=== PATIENT | male | born 1945 | race African-American/Black ===

== ENCOUNTER 2018-01-21 12:31 | Observation (INO) ==
--- NOTE | 2018-01-21 14:09 | ED ---
HPI General Chief Complaint: Dizziness Stated Complaint: dizzyness Time Seen by Provider: 01/21/18 14:06 Source: patient Mode of arrival: ambulatory Limitations: no limitations History of Present Illness HPI Narrative: 72-year-old male patient with history of hypertension presents to the ER today because he states he woke up this morning feeling dizzy. He states that he denies any chest pains, trouble breathing, or any other issues. He states that that said that is all he has noticed. Related Data Home Medications Medication Instructions Recorded Confirmed losartan-hydrochlorothiazide 1 tab PO DAILY 01/21/18 01/21/18 memantine [Namenda] 10 mg PO DAILY 01/21/18 01/21/18 Allergies Allergy/AdvReac Type Severity Reaction Status Date / Time No Known Allergies Allergy Verified 01/21/18 12:45 Review of Systems ROS: all other systems reviewed are negative PMFSH History History Provided By: Patient Medical History Medical History Dementia (Acute) Diabetes (Acute) Hypertension (Acute) Prostate cancer (Acute) Social History Social History Substance History: No History of Abuse Smoking Status: Never smoker How Often Do You Have a Drink Containing Alcohol: Monthly or less Recent Travel in [facility] within the Last 8 Weeks: No Recent Out of Country Travel within the Last 8 Weeks: No Exam Narrative Exam Narrative: GENERAL: Well-developed elderly -[place] male patient currently and mild distress. Awake and oriented x3. SKIN: Focused skin assessment warm/dry. HEAD: Atraumatic. Normocephalic. EYES: Pupils equal and round. No scleral icterus. No injection or drainage. ENT: No nasal bleeding or discharge. Mucous membranes pink and moist. NECK: Trachea midline. No JVD. CARDIOVASCULAR: Regular rate and rhythm. No murmur appreciated. RESPIRATORY: No accessory muscle use. Clear to auscultation. Breath sounds equal bilaterally. GASTROINTESTINAL: Abdomen soft, non-tender, nondistended. Hepatic and splenic margins not palpable. MUSCULOSKELETAL: No obvious deformities. No clubbing. No cyanosis. No edema. NEUROLOGICAL: Awake and alert. No obvious cranial nerve deficits. Motor grossly within normal limits. Normal speech. No pronator drift. PSYCHIATRIC: Appropriate mood and affect; insight and judgment normal. Course Initial Documented Vital Signs Temperature 98.2 F 01/21/18 12:41 Pulse Rate 101 H 01/21/18 12:41 Respiratory Rate 18 01/21/18 12:41 Blood Pressure 126/73 01/21/18 12:41 Pulse Oximetry 99 01/21/18 12:41 Last Documented Vital Signs Temperature 98.2 F 01/21/18 12:41 Pulse Rate 91 H 01/21/18 16:51 Respiratory Rate 14 01/21/18 16:51 Blood Pressure 113/78 01/21/18 16:51 Pulse Oximetry 98 01/21/18 16:51 Medical Decision Making MDM Narrative Medical decision making narrative: Patient has no focal neurological deficits. Lab shows significant glucose elevations of 454. IV fluids and insulin was given in the ER. At this point, my plan would be to admit the patient for further treatment of new onset diabetes. Case is discussed with Dr. Bee for admission. Medical Screen Exam Complete: Yes Emergency Medical Condition: Yes Differential Diagnosis Differential Diagnosis: Orthostasis versus dehydration versus electrolyte abnormalities versus CVA Lab Data Lab results reviewed: Yes I reviewed the patient's lab results. Result diagrams: 01/21/18 14:20 01/21/18 14:20 Lab Results 01/21/18 01/21/18 01/21/18 Range/Units 14:13 14:20 14:20 WBC 5.5 (4.0-11.0) th/mm3 RBC 4.86 (4.50-5.90) mil/mm3 Hgb 14.4 (13.0-17.0) gm/dL Hct 41.6 (39.0-51.0) % MCV 85.7 (80.0-100.0) fL MCH 29.6 (27.0-34.0) pg MCHC 34.5 (32.0-36.0) % RDW 12.6 (11.6-17.2) % Plt Count 167 (150-450) th/mm3 MPV 8.9 (7.0-11.0) fL Neut % (Auto) 51.8 (16.0-70.0) % Lymph % (Auto) 39.5 (9.0-44.0) % [place] % (Auto) 7.4 (0.0-8.0) % Eos % (Auto) 0.7 (0.0-4.0) % Baso % (Auto) 0.6 (0.0-2.0) % Neut # (Auto) 2.9 (1.8-7.7) th/mm3 Lymph # (Auto) 2.2 (1.0-4.8) th/mm3 [place] # (Auto) 0.4 (0.0-0.9) th/mm3 Eos # (Auto) 0.0 (0.0-0.4) th/mm3 Baso # (Auto) 0.0 (0.0-0.2) th/mm3 WBC Differential . Differential Comment Auto diff final Sodium 130 L (136-145) meq/L Potassium 4.0 (3.5-5.1) meq/L Chloride 90 L (98-107) meq/L Carbon Dioxide 26.8 (21.0-32.0) meq/L Anion Gap 13 (5-15) meq/L BUN 23 H (7-18) mg/dL Creatinine 1.60 H (0.60-1.30) mg/dL Estimated GFR 51 L (>89) mL/min POC Glucose 522 H* (68-110) mg/dl Random Glucose 458 H* (74-106) mg/dL Calcium 9.7 (8.5-10.1) mg/dL Total Bilirubin 1.0 (0.2-1.0) mg/dL AST 27 (15-37) U/L ALT 52 (12-78) U/L Alkaline Phosphatase 280 H (45-117) U/L Troponin I Less than 0.02 L (0.02-0.05) ng/mL Total Protein 9.2 H (6.4-8.2) g/dL Albumin 4.3 (3.4-5.0) g/dL Urine Color (Yellw/Straw) Urine Clarity (Clear) Urine pH (5.0-8.5) Ur Specific [place] (1.002-1.035) Urine Protein (Neg-Trace) mg/dL Urine Glucose (UA) (Negative) mg/dL Urine Ketones (Negative) mg/dL Urine Occult Blood (Negative) Urine Nitrate (Negative) Urine Bilirubin (Negative) Urine Urobilinogen (Less than 2) mg/dL Ur Leukocyte Esterase (Negative) Urine RBC (0-3) /hpf Urine WBC (0-5) /hpf Micro UA Comment Ur Microscopic Review Urine Culture Comments 01/21/18 Range/Units 15:22 WBC (4.0-11.0) th/mm3 RBC (4.50-5.90) mil/mm3 Hgb (13.0-17.0) gm/dL Hct (39.0-51.0) % MCV (80.0-100.0) fL MCH (27.0-34.0) pg MCHC (32.0-36.0) % RDW (11.6-17.2) % Plt Count (150-450) th/mm3 MPV (7.0-11.0) fL Neut % (Auto) (16.0-70.0) % Lymph % (Auto) (9.0-44.0) % [place] % (Auto) (0.0-8.0) % Eos % (Auto) (0.0-4.0) % Baso % (Auto) (0.0-2.0) % Neut # (Auto) (1.8-7.7) th/mm3 Lymph # (Auto) (1.0-4.8) th/mm3 [place] # (Auto) (0.0-0.9) th/mm3 Eos # (Auto) (0.0-0.4) th/mm3 Baso # (Auto) (0.0-0.2) th/mm3 WBC Differential Differential Comment Sodium (136-145) meq/L Potassium (3.5-5.1) meq/L Chloride (98-107) meq/L Carbon Dioxide (21.0-32.0) meq/L Anion Gap (5-15) meq/L BUN (7-18) mg/dL Creatinine (0.60-1.30) mg/dL Estimated GFR (>89) mL/min POC Glucose (68-110) mg/dl Random Glucose (74-106) mg/dL Calcium (8.5-10.1) mg/dL Total Bilirubin (0.2-1.0) mg/dL AST (15-37) U/L ALT (12-78) U/L Alkaline Phosphatase (45-117) U/L Troponin I (0.02-0.05) ng/mL Total Protein (6.4-8.2) g/dL Albumin (3.4-5.0) g/dL Urine Color Yellow (Yellw/Straw) Urine Clarity Clear (Clear) Urine pH 5.0 (5.0-8.5) Ur Specific [place] 1.022 (1.002-1.035) Urine Protein Negative (Neg-Trace) mg/dL Urine Glucose (UA) 500 or greater (Negative) mg/dL Urine Ketones Trace H (Negative) mg/dL Urine Occult Blood Negative (Negative) Urine Nitrate Negative (Negative) Urine Bilirubin Negative (Negative) Urine Urobilinogen Less than 2 (Less than 2) mg/dL Ur Leukocyte Esterase Negative (Negative) Urine RBC Less than 1 (0-3) /hpf Urine WBC Less than 1 (0-5) /hpf Micro UA Comment Culture not ind Ur Microscopic Review Not Reportable Urine Culture Comments Culture not ind Imaging Data Attestation: I personally reviewed and interpreted this imaging study as follows : Radiologist's impression: Chest X-Ray 01/21/18 14:06 CONCLUSION: 1. No acute cardiopulmonary disease. Head CT 01/21/18 14:06 CONCLUSION: 1. Senescent changes with moderate periventricular ischemic white matter demyelination. 2. No acute intracranial abnormality. . Discharge Plan Discharge Disposition Patient Disposition: 30 Still Patient Discharge Condition Condition: Stable Discharge Details Anticipated Discharge Date: 01/21/18 Diagnosis: Hyperglycemia, Diabetes mellitus, new onset Physicians Team ED Provider: Madhuri oCnway Primary Care Provider: Teresita Romero Rxs /Orders / Referrals /Forms Prescriptions: No Action losartan-hydrochlorothiazide 50-12.5 mg Tablet 1 tab PO DAILY RF: 0 memantine [Namenda] 10 mg Tablet 10 mg PO DAILY RF: 0 Discharge Interventions Interventions: Vital Signs Last Done: 01/21/18 16:51 Status ED Status: Admitted Patient
[2018-01-21 14:36] LABS: Baso % (Auto) 0.6 % (0.0-2.0); Eos % (Auto) 0.7 % (0.0-4.0); Hematocrit 41.6 % (39.0-51.0); Hemoglobin 14.4 gm/dL (13.0-17.0); Lymph # (Auto) 2.2 th/mm3 (1.0-4.8); Lymph % (Auto) 39.5 % (9.0-44.0); Mean Corpuscular HGB Conc 34.5 % (32.0-36.0); Mean Corpuscular Hemoglobin 29.6 pg (27.0-34.0); Mean Corpuscular Volume 85.7 fL (80.0-100.0); Mean Platelet Volume 8.9 fL (7.0-11.0); Mono # (Auto) 0.4 th/mm3 (0.0-0.9); Mono % (Auto) 7.4 % (0.0-8.0); Neut # (Auto) 2.9 th/mm3 (1.8-7.7); Neut % (Auto) 51.8 % (16.0-70.0); Platelet Count 167 th/mm3 (150-450); Red Blood Count 4.86 mil/mm3 (4.50-5.90); Red Cell Distribution Width 12.6 % (11.6-17.2); White Blood Count 5.5 th/mm3 (4.0-11.0)
--- NOTE | 2018-01-21 14:43 | XR ---
EXAM DATE: 01/21/2018 2:36 PM EST AGE/SEX: 72 years / Male INDICATIONS: Chest pain and dizziness. CLINICAL DATA: This is the patient's initial encounter. Patient reports that signs and symptoms have been present for 1 day and indicates a pain score of 2/10. MEDICAL/SURGICAL HISTORY: None. None. [place] [facility] [place]. . FINDINGS: A single AP view of the chest demonstrates the lungs to be symmetrically aerated without evidence of mass, infiltrate or effusion. The cardiomediastinal contours are unremarkable. Osseous structures a re intact. CONCLUSION: 1. No acute cardiopulmonary disease. Electronically signed by: Robert Perez MD 01/21/2018 2:42 PM EST
[2018-01-21] MEDS ORDERED: Sodium Chlor 0.9% Inj 500 ML IV.SIG SCH (15:00)
[2018-01-21 15:18] LABS: Alanine Aminotransferase 52 U/L (12-78); Albumin 4.3 g/dL (3.4-5.0); Alkaline Phosphatase 280 U/L (45-117); Anion Gap 13 meq/L (5-15); Aspartate Aminotransferase 27 U/L (15-37); Blood Urea Nitrogen 23 mg/dL (7-18); Calcium 9.7 mg/dL (8.5-10.1); Carbon Dioxide 26.8 meq/L (21.0-32.0); Chloride 90 meq/L (98-107); Glomerular Filtration Rate 51 mL/min (>89); Sodium 130 meq/L (136-145); Total Protein 9.2 g/dL (6.4-8.2)
[2018-01-21 15:23] LABS: Glucose,Random 458 mg/dL (74-106)
[2018-01-21 15:49] LABS: Bilirubin,Urine Negative (Negative); Clarity,Urine Clear (Clear); Color,Urine Yellow (Yellw/Straw); Glucose,Urine (UA) 500 or Greater mg/dL (Negative); Leukocyte Esterase,Urine Negative (Negative); Nitrite,Urine Negative (Negative); Specific Gravity,Urine 1.022 (1.002-1.035)
--- NOTE | 2018-01-21 15:51 | CT ---
EXAM DATE: 01/21/2018 3:47 PM EST AGE/SEX: 72 years / Male INDICATIONS: Dizzy disoriented CLINICAL DATA: This is the patient's initial encounter. Patient reports that signs and symptoms have been present for 1 day and indicates a pain score of 0/10. MEDICAL/SURGICAL HISTORY: Diabetes. Hypertension. Carcinoma, prostatic. Dementia None. RADIATION DOSE: 56.35 CTDI (mGy) COMPARISON: No prior exams available for comparison. TECHNIQUE: CT of the head without contrast. Using automated exposure control and adjustment of the mA and/or kV according to patient size, radiation dose was kept as low as reasonably achievable to ob tain optimal diagnostic quality images. DICOM format image data is available electronically for revi ew and comparison. FINDINGS: Cerebrum: Moderate diffuse cerebral atrophy. The ventricles are normal for degree of atrophy. Modera te periventricular white matter hypodensities. No evidence of midline shift, mass lesion, hemorrhage or acute infarction. No extraaxial fluid collections are seen. Posterior Fossa: The cerebellum and brainstem are intact. The 4th ventricle is midline. The cerebe llopontine angle is unremarkable. Extracranial: The visualized portion of the orbits is intact. Skull: The calvaria is intact. No evidence of skull fracture. CONCLUSION: 1. Senescent changes with moderate periventricular ischemic white matter demyelination. 2. No acute intracranial abnormality. . Electronically signed by: Robert Perez MD 01/21/2018 3:50 PM EST
[2018-01-21] MEDS ORDERED: Acetaminophen 325 MG Tablet PO PRN (16:59)
[2018-01-21] MEDS ORDERED: Dextrose 50% in Water 50 ML Vial IV.PUSH PRN ×2 (16:59→17:02)
--- NOTE | 2018-01-21 18:06 | P.HP ---
History of Present Illness Primary Care Physician: Teresita Romero History of Present Illness: 72-year-old male with a history of hypertension and early dementia was taken to his primary care provider earlier today after his daughter noticed some changes in his behavior and patient complained of feeling unusually tired. When they checked a blood sugar at the office it was above 400 and he was directed to go to our [facility] emergency room for further care. When he arrived his sugar was beyond 500 and he received 4 units of insulin which brought it down to approximately 450. His daughter reports that over the last week he has been craving starchy foods and eating them excessively despite being told not to he pursues them with urgency. He has also been drinking excessive amounts of water and urinating frequently. Currently he is resting on the ER stretcher in his room, has no complaints of pain. He denies any recent fevers and ER workup revealed no urinary tract infection and a normal chest x-ray. He denies any numbness in his feet or hands. He denies any sensation of itching burning in his feet. He denies any recent visual changes. He denies any nausea vomiting or diarrhea. He denies any chest pain, shortness of breath, irregular heartbeat , palpitations, cough, fever. Review of Systems All other systems reviewed negative except as stated in HPI PMFSH - History History Provided By: Patient - Medical History Medical History: Medical History (Last Reviewed 01/21/18 @ 14:08 by Madhuri Conway MD) Dementia Diabetes Hypertension Prostate cancer - Surgical History Surgical History: Surgical History (Last Reviewed 01/21/18 @ 14:08 by Madhuri Conway MD) Hx of tonsillectomy - Family History Family History: Family History (Last Updated 01/21/18 @ 18:01 by Emerson Bee MD) Other Hypertension Stroke Type 2 diabetes mellitus - Tobacco History Smoking Status: Never smoker - Alcohol History How Often Do You Have a Drink Containing Alcohol: Monthly or less - Substance Use History Substance History: No History of Abuse - Travel History Recent Travel in the [place] Within the Last 8 Weeks: No Recent Travel Out of the Country Within the Last 8 Weeks: No - Immunization History Tetanus Immunization: >5 Years Medications and Allergies Active Medications: Active Medications Acetaminophen (Tylenol) 650 mg PO Q4H PRN PRN Reason: Temp > 100.4 Dextrose (D50w Vial) 50 ml IV.PUSH UNSCH PRN PRN Reason: PER HYPOGLYCEMIA PROTOCOL Enoxaparin Sodium (Lovenox Inj) 40 mg SQ Q24H GILMAR Glucagon (Glucagon Inj) 1 mg OTHER PRN PRN PRN Reason: for Hypoglycemia Protocol Insulin Aspart (Novolog Insulin Correctional Sugar Inj) 0 unit SQ ACHS GILMAR; Protocol Insulin Aspart (Novolog Inj) 10 units SQ ONCE ONE Stop: 01/21/18 17:57 Metformin HCl (Glucophage) 500 mg PO BIDPC GILMAR Ondansetron HCl (Zofran Inj) 4 mg IV.PUSH Q6H PRN PRN Reason: NAUSEA OR VOMITING Sennosides (Senokot) 17.2 mg PO Q12H PRN PRN Reason: Moderate Constipation Sodium Chloride (Ns Flush) 2 ml IV.FLUSH PRN PRN PRN Reason: FLUSH AFTER USING IV ACCESS Allergies Allergy/AdvReac Type Severity Reaction Status Date / Time No Known Allergies Allergy Verified 01/21/18 12:45 Home Medications Medication Instructions Recorded Confirmed Type losartan-hydrochlorothiazide 1 tab PO DAILY 01/21/18 01/21/18 History memantine [Namenda] 10 mg PO DAILY 01/21/18 01/21/18 History Exam Vital signs: Vital Signs 01/21/18 12:41 01/21/18 14:09 01/21/18 14:10 Temperature 98.2 F Pulse Rate 101 H 105 H 105 H Respiratory Rate 18 15 Blood Pressure 126/73 129/74 Pulse Oximetry 99 95 01/21/18 16:51 Temperature Pulse Rate 91 H Respiratory Rate 14 Blood Pressure 113/78 Pulse Oximetry 98 Intake & Output 01/20/18 01/21/18 01/21/18 18:59 06:59 18:59 Intake Total 500 / 500 Balance 500 / 500 Weight 81.647 kg Intake: IV 500 / 500 NS Inj 500 ML @ 1000 mls/hr IV. 500 / 500 SIG BOLUS [facility] Rx#:[id number] Narrative: GENERAL: AAOx3, no acute distress, adequate nutrition SKIN: Warm and dry, no rashes. HEAD: Atraumatic. Normocephalic. EYES: Pupils equal, round, reactive to light. No scleral icterus. No injection or drainage. ENT: No nasal bleeding or discharge. Moist mucous membranes. Nonerythematous oropharynx. NECK: Trachea midline. No JVD. Thyroid size within normal limits. CARDIOVASCULAR: Regular rate and rhythm. No murmur, no gallops, no rubs. RESPIRATORY: Clear and equal to auscultation bilaterally. No crackles, no wheezes. No accessory muscle use. GASTROINTESTINAL: Abdomen soft, non-tender, nondistended, normal active bowel sounds. Hepatic and splenic margins not palpable. MUSCULOSKELETAL: Extremities without clubbing or cyanosis. No obvious deformities. No edema. NEUROLOGICAL: Awake and alert. No obvious cranial nerve deficits. Motor grossly within normal limits. No focal deficits. Five out of 5 muscle strength in the arms and legs. Normal speech. PSYCHIATRIC: Appropriate mood and affect; insight and judgment normal. Results - Labs CBC & Chem 7: 01/21/18 14:20 01/21/18 14:20 Labs: Laboratory Results - last 24 hr 01/21/18 01/21/18 01/21/18 14:13 14:20 14:20 WBC 5.5 RBC 4.86 Hgb 14.4 Hct 41.6 MCV 85.7 MCH 29.6 MCHC 34.5 RDW 12.6 Plt Count 167 MPV 8.9 Neut % (Auto) 51.8 Lymph % (Auto) 39.5 [place] % (Auto) 7.4 Eos % (Auto) 0.7 Baso % (Auto) 0.6 Neut # (Auto) 2.9 Lymph # (Auto) 2.2 [place] # (Auto) 0.4 Eos # (Auto) 0.0 Baso # (Auto) 0.0 WBC Differential . Differential Comment Auto diff final Sodium 130 L Potassium 4.0 Chloride 90 L Carbon Dioxide 26.8 Anion Gap 13 BUN 23 H Creatinine 1.60 H Estimated GFR 51 L POC Glucose 522 H* Random Glucose 458 H* Calcium 9.7 Total Bilirubin 1.0 AST 27 ALT 52 Alkaline Phosphatase 280 H Troponin I Less than 0.02 L Total Protein 9.2 H Albumin 4.3 Urine Color Urine Clarity Urine pH Ur Specific [place] Urine Protein Urine Glucose (UA) Urine Ketones Urine Occult Blood Urine Nitrate Urine Bilirubin Urine Urobilinogen Ur Leukocyte Esterase Urine RBC Urine WBC Micro UA Comment Ur Microscopic Review Urine Culture Comments 01/21/18 01/21/18 15:22 16:50 WBC RBC Hgb Hct MCV MCH MCHC RDW Plt Count MPV Neut % (Auto) Lymph % (Auto) [place] % (Auto) Eos % (Auto) Baso % (Auto) Neut # (Auto) Lymph # (Auto) [place] # (Auto) Eos # (Auto) Baso # (Auto) WBC Differential Differential Comment Sodium Potassium Chloride Carbon Dioxide Anion Gap BUN Creatinine Estimated GFR POC Glucose 474 H* Random Glucose Calcium Total Bilirubin AST ALT Alkaline Phosphatase Troponin I Total Protein Albumin Urine Color Yellow Urine Clarity Clear Urine pH 5.0 Ur Specific [place] 1.022 Urine Protein Negative Urine Glucose (UA) 500 or greater Urine Ketones Trace H Urine Occult Blood Negative Urine Nitrate Negative Urine Bilirubin Negative Urine Urobilinogen Less than 2 Ur Leukocyte Esterase Negative Urine RBC Less than 1 Urine WBC Less than 1 Micro UA Comment Culture not ind Ur Microscopic Review Not Reportable Urine Culture Comments Culture not ind - Imaging Impressions Chest X-Ray 01/21/18 14:06 CONCLUSION: 1. No acute cardiopulmonary disease. Head CT 01/21/18 14:06 CONCLUSION: 1. Senescent changes with moderate periventricular ischemic white matter demyelination. 2. No acute intracranial abnormality. . Caprini VTE Risk Assessment Caprini VTE Risk Assessment: Moderate/High Risk (score >= 2) Caprini Risk Assessment Model: Point Value = 1 Point Value = 2 Point Value = 3 Point Value = 5 Age 41-60 Minor surgery BMI > 25 kg/m2 Swollen legs Varicose veins or History of unexplained or recurrent spontaneous Oral contraceptives or hormone replacement Sepsis (< 1 month) Serious lung disease, including pneumonia (< 1 month) Abnormal pulmonary function Acute myocardial infarction Congestive heart failure (< 1 month) History of inflammatory bowel disease Medical patient at bed rest Age 61-74 Arthroscopic surgery Major open surgery (> 45 min) Laparoscopic surgery (> 45 min) Malignancy Confined to bed (> 72 hours) Immobilizing plaster cast Central venous access Age >= 75 History of VTE Family history of VTE Factor V Leiden Prothrombin [id number] Lupus anticoagulant Anticardiolipin antibodies Elevated serum homocysteine Heparin-induced thrombocytopenia Other congenital or acquired thrombophilia Stroke (< 1 month) Elective arthroplasty Hip, pelvis, or leg fracture Acute spinal cord injury (< 1 month) Prophylaxis Regimen: Total Risk Factor Score Risk Level Prophylaxis Regimen 0-1 Low Early ambulation 2 Moderate Order ONE of the following: *Sequential Compression Device (SCD) *Heparin 5000 units SQ BID 3-4 Higher Order ONE of the following medications: *Heparin 5000 units SQ TID *Enoxaparin/Lovenox 40 mg SQ daily (WT < 150 kg, CrCl > 30 mL/min) *Enoxaparin/Lovenox 30 mg SQ daily (WT < 150 kg, CrCl > 10-29 mL/min) *Enoxaparin/Lovenox 30 mg SQ BID (WT < 150 kg, CrCl > 30 mL/min) AND/OR *Sequential Compression Device (SCD) 5 or more Highest Order ONE of the following medications: *Heparin 5000 units SQ TID (Preferred with Epidurals) *Enoxaparin/Lovenox 40 mg SQ daily (WT < 150 kg, CrCl > 30 mL/min) *Enoxaparin/Lovenox 30 mg SQ daily (WT < 150 kg, CrCl > 10-29 mL/min) *Enoxaparin/Lovenox 30 mg SQ BID (WT < 150 kg, CrCl > 30 mL/min) AND *Sequential Compression Device (SCD) Assessment and Plan - Plan Newly diagnosed diabetic Likely type 2 diabetes based on family history Patient presented following polydipsia, polyuria, sugar craving times 1 week Medium scale insulin coverage with in between dosing, 10 more units given in addition to 4 previous in the ER Follow with regular Accu-Cheks before meals at bedtime No sign of infection as causal factor Hypoglycemic protocol in place Begin on oral metformin Diabetic teaching ordered Patient has dementia, if possible sent home on oral medications Follow-up a.m. labs Early dementia Patient denies he has dementia, family become frustrated with his denial Follow for sundowning or other behavioral changes Speech therapy for cognitive evaluation h/o prostate cancer Check PSA with a.m. labs h/o hypertension Continue home meds DVT Prophylaxis Lovenox
[2018-01-21] MEDS: Enoxaparin Inj 40 MG/0.4 ML Syringe SQ SCH (19:28)
[2018-01-21] MEDS: Insulin NovoLOG Aspart Correctional Sugar Inj SQ SCH (21:34)
[2018-01-22 05:58] LABS: Hemoglobin 13.3 gm/dL (13.0-17.0); Mean Corpuscular HGB Conc 34.1 % (32.0-36.0); Mean Corpuscular Hemoglobin 29.3 pg (27.0-34.0); Mean Corpuscular Volume 85.8 fL (80.0-100.0); Mean Platelet Volume 9.4 fL (7.0-11.0); Platelet Count 161 th/mm3 (150-450); Red Blood Count 4.55 mil/mm3 (4.50-5.90); Red Cell Distribution Width 12.6 % (11.6-17.2); White Blood Count 5.5 th/mm3 (4.0-11.0)
[2018-01-22 06:28] LABS: Calcium 9.7 mg/dL (8.5-10.1); Carbon Dioxide 28.2 meq/L (21.0-32.0); Potassium 3.6 meq/L (3.5-5.1)
[2018-01-22 06:37] LABS: Thyroid Stimulating Hormone 0.449 uIU/mL (0.358-3.740)
[2018-01-22] MEDS ORDERED: Non-Formulary Drug (Losartan-Hydrochlorothiazide [Losartan-Hydrochlorothiazide] 1 TAB) PO SCH (09:00)
[2018-01-22] MEDS: Glimepiride 1 MG Tablet PO SCH ×3 (10:09→21:07)
[2018-01-22] MEDS: Insulin NovoLOG Aspart Correctional Sugar Inj SQ SCH ×4 (10:10→21:07)
--- NOTE | 2018-01-22 10:25 | ECG ---
Date Performed: 01/21/2018 Time Performed: 14:21:22 PTAGE: 72 years EKG: SINUS TACHYCARDIA POSSIBLE LEFT ATRIAL ENLARGEMENT RIGHT BUNDLE BRANCH BLOCK LEFT POSTERIOR FASCICULAR BLOCK ABNORMAL ECG Since the PREVIOUS TRACING , no significant change noted PREVIOUS TRACIN05/27/2015 10.36 DOCTOR: Chas Rodriguez Interpretating Date/Time 01/22/2018 10:23:46
--- NOTE | 2018-01-22 15:25 | P.PNIM ---
Subjective Interval history: Follow up AMS new onset DM pt offers no new concerns/complaints reports feeling much better today Physical Exam Vital signs: Last Vital Signs Temp 98.6 F 01/22/18 12:42 Pulse 103 H 01/22/18 12:42 Resp 16 01/22/18 12:42 BP 120/67 01/22/18 12:42 Pulse Ox 95 01/22/18 12:42 Narrative: GENERAL: This is a well-nourished, well-developed patient, in no apparent distress. CARDIOVASCULAR: Regular rate and rhythm RESPIRATORY: Clear to auscultation. Breath sounds equal bilaterally. GASTROINTESTINAL: Abdomen soft, non-tender, nondistended. Normal active bowel sounds MUSCULOSKELETAL: Extremities without clubbing, cyanosis, or edema. NEURO: Alert & Oriented, confusion at times per nursing. Moves all ext x4 Results Labs CBC & Chem 7: 01/22/18 05:09 01/22/18 05:09 Assessment and Plan Assessment (1) Hyperglycemia: Code(s): R73.9 - Hyperglycemia, unspecified Status: Acute (2) Diabetes mellitus, new onset: Code(s): E11.9 - Type 2 diabetes mellitus without complications Status: Acute Plan Newly diagnosed diabetic Likely type 2 diabetes based on family history Patient presented following polydipsia, polyuria, sugar craving times 1 week HA1C pending Medium scale insulin coverage with in between dosing, 10 more units given in addition to 4 previous in the ER Follow with regular Accu-Cheks before meals at bedtime No sign of infection as causal factor Hypoglycemic protocol in place Begin on oral metformin add Glimepiride 1 mg PO BID, patient continues to require supplemental insulin with sliding scale increase glimepiride 2 mg BID Blood glucose remains in the 300's Diabetic teaching ordered Patient has dementia, if possible sent home on oral medications Early dementia Patient denies he has dementia, family become frustrated with his denial Follow for sundowning or other behavioral changes Speech therapy for cognitive evaluation, on the [facility] mental status exam h/o prostate cancer PSA pending h/o hypertension Continue home meds DVT Prophylaxis Lovenox Attending Attestation The exam, history, and the medical decision-making described in the above note were completed with the assistance of the mid-level provider. I reviewed and agree with the findings presented. I attest that I had a [id number] encounter with the patient on the same day, and personally performed and documented my assessment and findings in the medical record. Patient examined. Assessment and plan formulated with Nazia Love PA-C. I agree with the above. Progress Note: Quality VTE Deep Vein Thrombosis/Pulmonary Embolism Present on Admission: No
[2018-01-22 16:55] LABS: Hemoglobin A1c 14.2 % (4.3-6.0)
[2018-01-22] MEDS: Enoxaparin Inj 40 MG/0.4 ML Syringe SQ SCH (18:16)
[2018-01-23] MEDS: Insulin NovoLOG Aspart Correctional Sugar Inj SQ SCH ×4 (09:15→20:56)
[2018-01-23] MEDS: Glimepiride 1 MG Tablet PO SCH ×2 (09:16→16:58)
--- NOTE | 2018-01-23 15:31 | P.DCO ---
Diagnosis (1) Hyperglycemia: Status: Acute (2) Diabetes mellitus, new onset: Status: Acute Home Health Nursing Order: Medical education, Signs/symptoms of disease process, Diabetic education , Medication education-adverse effect and Nursing assessment with vital signs Booth Cashier Order: To evaluate: Living conditions/environment and Support services Order: To provide: Long range planning and Community services Case Management Consult Yes I have seen patient Rod Saez on 01/23/18. My clinical findings support the need for the requested home health care services because: Limited mobility due to disease progression I certify that my clinical findings support that this patient is homebound because: Impaired cognitive ability/safety
--- NOTE | 2018-01-23 16:02 | P.PNIM ---
Subjective Interval history: Pt has NO new complaints. Physical Exam Vital signs: Last Vital Signs Temp 97.7 F 01/23/18 08:00 Pulse 93 H 01/23/18 12:00 Resp 16 01/23/18 12:00 BP 123/77 01/23/18 12:00 Pulse Ox 97 01/23/18 12:00 Narrative: GENERAL: This is a well-nourished, well-developed patient, in no apparent distress. CARDIOVASCULAR: Regular rate and rhythm RESPIRATORY: Clear to auscultation. Breath sounds equal bilaterally. GASTROINTESTINAL: Abdomen soft, non-tender, nondistended. Normal active bowel sounds MUSCULOSKELETAL: Extremities without clubbing, cyanosis, or edema. NEURO: Alert & Oriented, confusion at times per nursing. Moves all ext x4 Results Labs CBC & Chem 7: 01/22/18 05:09 01/22/18 05:09 Assessment and Plan Assessment (1) Hyperglycemia: Code(s): R73.9 - Hyperglycemia, unspecified Status: Acute (2) Diabetes mellitus, new onset: Code(s): E11.9 - Type 2 diabetes mellitus without complications Status: Acute Plan Newly diagnosed diabetic Likely type 2 diabetes based on family history Patient presented following polydipsia, polyuria, sugar craving times 1 week HA1C (01/22) 14.2 - blood sugar values are improving. All readings under 300 today. - continue metformin 1,000mg BID - continue amaryl 2mg BID - Diabetic teaching ordered - Patient has dementia, if possible sent home on oral medications - recommend outpt referral to [employer] - anticipate d/c to home 01/24/18 with [facility] Early dementia Patient denies he has dementia, family become frustrated with his denial Follow for sundowning or other behavioral changes Speech therapy for cognitive evaluation, on the [facility] mental status exam h/o prostate cancer PSA 15.7 - f/u with Urology outpt hypertension - stable Continue home meds DVT Prophylaxis Lovenox Progress Note: Quality VTE Deep Vein Thrombosis/Pulmonary Embolism Present on Admission: No
[2018-01-23] MEDS: Enoxaparin Inj 40 MG/0.4 ML Syringe SQ SCH (18:34)
[2018-01-24 07:31] VITALS: RESP 16
[2018-01-24] MEDS: Glimepiride 1 MG Tablet PO SCH (08:31)
[2018-01-24] MEDS: Insulin NovoLOG Aspart Correctional Sugar Inj SQ SCH ×2 (08:32→13:02)
--- NOTE | 2018-01-24 10:30 | P.DS ---
DS: Providers Date of admission: 01/21/18 17:13 Primary care physician: Teresita Romero DS: Diagnosis Discharge Diagnosis (1) Hyperglycemia: Status: Acute (2) Diabetes mellitus, new onset: Status: Acute DS: Summary Plan Newly diagnosed diabetic Likely type 2 diabetes based on family history Patient presented following polydipsia, polyuria, sugar craving times 1 week HA1C (01/22) 14.2 - blood sugars are improving. All readings now under 350, and most readings below 300 - continue metformin 1,000mg BID - continue amaryl 2mg BID - Patient has dementia. Pt will need family assistance to manage his blood sugars. - Insulin might be difficult. Would like to try to manage with [facility] first. - Pt may need to increase amaryl outpt - Case d/w pt and daughter Kristine (by phone) on day of discharge - recommend outpt referral to [employer] - discharge to home today - see discharge orders - F/u with PCP, Dr. Teresita Romero, in 1 week. Early dementia Patient denies he has dementia, family become frustrated with his denial Follow for sundowning or other behavioral changes Speech therapy for cognitive evaluation, on the [facility] mental status exam h/o prostate cancer PSA 15.7 - f/u with Urology outpt hypertension - stable Continue home meds Time Spent with Patient Total time spent providing and/or coordinating discharge services: Quality: VTE Deep Vein Thrombosis/Pulmonary Embolism Present on Admission: No DS: Data Labs on day of discharge: Labs from last 24 hours 01/24/18 01/23/18 01/23/18 08:30 20:51 18:09 POC Glucose 233 H 320 H 254 H 01/23/18 12:53 POC Glucose 268 H Impressions Chest X-Ray 01/21/18 14:06 CONCLUSION: 1. No acute cardiopulmonary disease. Head CT 01/21/18 14:06 CONCLUSION: 1. Senescent changes with moderate periventricular ischemic white matter demyelination. 2. No acute intracranial abnormality. . Discharge Plan Discharge Disposition Patient Disposition: W/Home Health Service Discharge Condition Condition: Stable Discharge Order Discharge Orders: Discharge Order (Routine); Ordered 01/24/18 Ordered By: Nazia Love Discharge Details Anticipated Discharge Date: 01/24/18 Physicians Team ED Provider: Madhuri Conway Primary Care Provider: Teresita Romero Attending Provider: Gil Villalba Rxs /Orders / Referrals /Forms Prescriptions: New glimepiride 2 mg tablet 2 mg PO BID Qty: 60 RF: 0 metformin 1,000 mg tablet 1,000 mg PO BID Qty: 60 RF: 0 Continue losartan-hydrochlorothiazide 50-12.5 mg Tablet 1 tab PO DAILY RF: 0 memantine [Namenda] 10 mg Tablet 10 mg PO DAILY RF: 0 Referrals: Gregory Gould DO [UROLOGY] - See Instructions (Follow up with Urology in 1-2 weeks regarding elevated PSA) Teresita Romero, [employer]AT[employer] VETERINARIAN [Primary Care Provider] - See Instructions (follow up within 1 week) Discharge Instructions Patient Printed Instructions: Foot Care for People with Diabetes (GEN), Type 2 Diabetes in Adults (GEN), Managing Diabetes During Sick Days (GEN) Additional Instructions: IMPORTANT PHONE NUMBERS: [facility] [phone] or [phone] Status ED Status: Left Department
[2018-01-24 11:57] VITALS: BP 135/96; PULSE 88; TEMP 98.2; O2SAT 96
== END 2018-01-24 15:20 | disposition home health service (06) ==
LOC: NEDA 12:31 → NEPC 12:31 → NEPFCDU 20:48
PROVIDERS: ADMIT Hospitalist; ATTEND Hospitalist